=== PATIENT | male | born 1935 | race Caucasian/White ===

== ENCOUNTER 2016-10-23 00:06 | Day surgery (SDC) | payer MEDICARE, OTHER ==
[2016-10-23] VITALS (17 sets, daily range): BP systolic 99–149; BP diastolic 58–88; PULSE 60–68; RESP 13–19; O2SAT 94–98
[~2016-10-23] VITALS: Ht 175.3 cm; Wt 82.0 kg
[~2016-10-23 00:06] MED LIST: ALBU90AE IH; ASCO-294 PO; ASPI-973 PO; ATRV10T PO; CYAN100T PO; DIVA125T2 PO; ECON15CR10 TOP; LEVO50TA6 PO; LISI10TA PO; METO-272 PO; NIAC500T21 PO; NITR0.4T6 SL; OMEG300C3 PO; OXYC1TAB24 PO; TAMS0.4C98 PO; TIOT18CA3 IH
[2016-10-23] MEDS ORDERED: 0.9% Sodium Chloride 1,000 ML IV ONE (06:30)
--- NOTE | 2016-10-23 06:30 | NUR ---
ADMISSION NOTE MALE PT ADMITTED FOR HEART CATH. DISCUSSED PLAN OF CARE WITH PT AND . SEE ADMIT AND FLOW SHEET
[2016-10-23] MEDS ORDERED: Heparin 10,000 Unit/1,000 mL NS Premix IV ONE (07:34)
[2016-10-23] MEDS ORDERED: Heparin 1,000 Units/500 mL NS Premix IV ONE (07:34)
[2016-10-23 07:40] LABS: BASOPHILS % (AUTO) 0.3 % (0-3); EOSINOPHILS % (AUTO) 2.8 % (0-5); MONOCYTES % (AUTO) 9.6 % (4-12); Mean Corpuscular Hemoglobin 30.3 pg (27.0-35.0); NEUTROPHILS % (AUTO) 64.8 % (40-74); Platelet Count 213 bil/L (150-400)
[2016-10-23] MEDS ORDERED: METO25TA6 PO (07:47)
[2016-10-23 07:55] LABS: INR 0.94 ratio
[2016-10-23] MEDS ORDERED: mometasone furoate INH (07:56)
[2016-10-23] MEDS ORDERED: VALP250C2 PO ×2 (07:56)
[2016-10-23] MEDS ORDERED: MELA3TAB46 PO (07:57)
[2016-10-23] MEDS ORDERED: PRAZ1CAP2 PO (08:00)
[2016-10-23] MEDS ORDERED: MULT1CAP33 PO (08:00)
[2016-10-23] MEDS ORDERED: SERT50TA9 PO (08:00)
[2016-10-23] MEDS ORDERED: ZOLPIDEM PO (08:00)
[2016-10-23] MEDS ORDERED: fentaNYL-PF 50 mCg/mL 2 mL Inj ONE (08:19)
[2016-10-23] MEDS ORDERED: Heparin 1,000 Unit/mL 10 mL Inj ONE ×2 (08:40→09:20)
[2016-10-23] MEDS ORDERED: Nitroglycerin 50,000 mcg/250 mL D5W Premix IV ONE (08:48)
--- NOTE | 2016-10-23 12:54 | DI95 ---
[address] [address] INTERVENTIONAL CARDIAC CATHETERIZATION PATIENT: ILNWOOD REYES V : 1935 MR#: [id number] ADMIT: 10/23/2016 JOB ID: [id number] DATE OF SERVICE: 10/23/2016 PATIENT PROFILE: The patient is an 80 years old male with history of prior smoking, hypertension and hyperlipidemia. He underwent coronary artery bypass surgery x3 in April 2009, with SON graft to the LAD, right radial graft to the posterolateral branch of the circumflex and left radial graft of the obtuse marginal branch. The patient developed exertional chest discomfort and dyspnea for the past three months. PROCEDURE: 1. Retrograde left heart catheterization. 2. Selective coronary angiography. 3. Left internal mammary angiography. 4. Radial graft angiography. 5. Ascending aortogram. 6. Balloon angioplasty and stenting to the major obtuse marginal branch. VASCULAR CLOSURE DEVICE: Perclose. COMPLICATIONS: None. METHOD: Retrograde left heart catheterization was performed from the right groin under 1% lidocaine local anesthesia using a 6-Armenian sheath. It was somewhat difficult to engage the left coronary ostium. The femoral sheath was then exchanged to a 6-Armenian 25 cm sheath. Selective coronary angiogram was performed in multiple projections, including cranial and caudal angulations with hand-injected contrast via JL5 and 3DRC catheters. A 4-Armenian IM catheter was used for internal mammary angiogram. A 5-Armenian AR modified catheter was used for radial graft angiogram. A 6-Armenian angulated pigtail catheter was advanced to left ventricle and left ventricular pressure was obtained. This catheter was withdrawn into the ascending aorta, and ascending aortogram was performed in the 40-degree TELUGU view by injecting contrast at a rate of 20 cc/sec for 1.5 seconds. This catheter was withdrawn. Heparin was given in order to maintain ACT above 300. A 6-Armenian JL5 guide was initially used but could not provide enough support. The guide catheter was then changed to a 6-Armenian CLS4 guide. A Runthrough wire was placed inside the obtuse marginal branch. This wire went through the previous stent strut in the mid circumflex artery. Then, 1.2, 1.5, 2.0, 2.5 and 3.0 mm balloons were used to dilate in the mid circumflex artery throgh the stent strut and involved the origin of this obtuse marginal branch. An attempt to advance a 2.75 x 15 Resolute stent to the lesion was unsuccessful due to unable to turn the corner. The 3.0 mm balloon was again used to dilate at the origin of the obtuse marginal branch. It was inflated up to 17 atmospheres. A Resolute Integrity 2.5 x 12 mm stent was then placed inside the mid obtuse marginal branch lesion and deployed at 12 atmospheres for 15 seconds. The stent balloon was pulled back and inflated in the mid circumflex artery up to 20 atmospheres. Final angiogram was obtained. Right femoral angiogram was performed before sheath removal. Hemostasis was achieved by using Perclose device. The patient tolerated the procedure well. He was transferred to the [facility] in good condition. TOTAL CONTRAST USED: 130 cc. FLUOROSCOPY TIME: 12.8 minutes. TOTAL RADIATION DOSE: 600 mGy. RESULTS: 1. Selective coronary angiogram: a. The coronary arteries are heavily calcified. b. The left main coronary artery has minor irregularity with moderate calcification. c. The left anterior descending artery is transapical and has severe eccentric 95% stenosis at its origin with heavy calcification. There is no competitive flow into this artery. The major diagonal branch has minor irregularity. d. The codominant circumflex artery is occluded distal to the takeoff of the major obtuse marginal branch. The major obtuse marginal branch has severe 85% stenosis in the mid portion. e. The codominant right coronary artery has moderate disease of 40% to 50% stenosis in the mid portion with moderate calcification. 2. The left internal mammary artery graft to the left anterior descending artery is nonfunctioning. 3. The right radial graft to the left posterolateral branch of the circumflex artery is an excellent conduit with excellent distal anastomosis and distal runoff. 4. The left radial graft to the obtuse marginal branch is occluded. 5. Aortic pressure is 115/54 mmHg. Left ventricular pressure is 102/0 mmHg. 6. Left ventricular end-diastolic pressure is 7 mmHg. 7. Balloon angioplasty and stenting was performed to the severe mid obtuse marginal branch lesion by deploying one drug-eluting stent (2.5 x 12 mm) to achieve an excellent angiographic result with CHERYL-3 flow distally. CONCLUSION: 1. Severe 95% proximal left anterior descending artery stenosis with nonfunctioning left internal mammary artery graft. 2. Severe 85% stenosis of the mid obtuse marginal branch. The radial graft to this branch is occluded. 3. This lesion was successfully treated with one drug-eluting stent. 4. Occluded distal circumflex artery with patent right radial graft to the left posterolateral branch of the circumflex. 5. Moderate disease of the right coronary artery. 6. Left ventricular end-diastolic pressure is 9 mmHg. MTDD
[2016-10-23] MEDS: 0.9% Sodium Chloride 1,000 ML IV SCH ×2 (13:53→23:35)
--- NOTE | 2016-10-23 14:00 | NUR ---
TRANSFERED TO [facility], REPORT GIVEN
[2016-10-23] MEDS ORDERED: Ondansetron 2 mg/mL 2 mL Inj IVPUSH PRN (14:50)
[2016-10-23] MEDS ORDERED: Atropine 1 mg/10 mL (Code) Syringe IVPUSH PRN (14:50)
[2016-10-23] MEDS ORDERED: Sodium Chloride LOK Flush 10 mL Syringe IVFLUSH PRN (14:50)
[2016-10-23] MEDS ORDERED: 0.9% Sodium Chloride 250 ML BOLUS IV PRN (14:50)
[2016-10-23] MEDS ORDERED: Albuterol 2.5 mg/3 mL Inhalation Solution NEB PRN (14:55)
[2016-10-23] MEDS ORDERED: oxyCODONE-Acetamin 5-325 mg Tablet PO PRN (15:00)
--- NOTE | 2016-10-23 15:58 | NUR ---
Admit from [facility] Pt arrived from [facility] to [facility] on his own bed. Pt A&O X3. BERG. Answers questions appropriately, able to make needs known. R groin site is C/D/I with no drainage or s/s infection. Pt ambulates independently with no issues. Pt voided in the bathroom. NS running at 150mls/hr. IV patent. Pedal pulses weak to palpation. L foot is cooler than the R. Addendum: 10/23/16 at 1844 by AMARIS SOLIMAN RN pedal and tibial pulses audible to doppler
[2016-10-23] MEDS: Fluticasone 250 mCg Inhaler INHALATION SCH (21:29)
[2016-10-24 00:13] VITALS: BP 159/85; PULSE 77; RESP 18; O2SAT 98
[2016-10-24 00:37] VITALS: BP 94/52
[2016-10-24 00:44] VITALS: BP 98/57; PULSE 66
[2016-10-24 04:25] VITALS: BP 105/49; PULSE 60; RESP 16; O2SAT 95
--- NOTE | 2016-10-24 04:39 | NUR ---
Groin Site/BPs Pt's groin site has been non-tender to the touch but has had an area of hardness next to the gauze portion of the dressing. Manual pressure was applied to the hardened site and the site became softer to the touch. There is now slight bruising in the area where manual pressure was applied. Pt does not c/o pain at the groin site. Pt's SBP throughout the shift has been 90s-100s. Pt did have one instance where SBP was in the 150s but when BP was retaken the SBP was in the 90s.
[2016-10-24 04:48] LABS: Mean Corpuscular Volume 92.6 fL (81-100)
[2016-10-24 04:59] VITALS: PULSE 60
[2016-10-24 08:00] VITALS: BP 121/65; PULSE 60; RESP 22; O2SAT 96
[2016-10-24] MEDS: Fluticasone 250 mCg Inhaler INHALATION SCH (08:05)
[2016-10-24] MEDS: 0.9% Sodium Chloride 1,000 ML IV SCH (08:06)
--- NOTE | 2016-10-24 08:14 | PCM.DIMED ---
Discharge Instructions Date of Service Oct 24, 2016 Dates of Hospitalization 10/23/2016 Discharge Diagnosis Discharge Diagnosis CAD, s/p GENE to OM (10/23/2016), s/p CABGx3, HTN, HLD Medication Instructions Additional med instructions Please take all medications as prescribed. Please make sure that you take Clopidogrel (Plavix) every day for at least one year because you had stent placement. I sent the prescription to Pharmacy at [facility] in [place]. Please pick it up today. Diet Discharge Diet: Low fat, Low Sodium, Heart Healthy Activity Discharge Activity: Other (Please see below) Call your provider Call your provider for: Shortness of breath, Bleeding, Chest pain Patient Instructions Patient Instructions No car driving for couple of days; you can have shower starting from today; no bath tub soaking for one week; no heavy lifting, no more than 7-10 lb for one week, otherwise you can be physically active as tolerated. Follow-up plan check BMP in one week You have an appointment with [employer] Dr. Cerda scheduled on 11/03/2016 at 3 pm , please arrive 20 min earlier. Thank you Myles Ramos PA-C Oct 24, 2016 08:14
[2016-10-24] MEDS ORDERED: Ascorbic Acid 500 mg Tablet PO SCH (08:30)
[2016-10-24] MEDS ORDERED: CLOP75TA28 PO (08:36)
--- NOTE | 2016-10-24 08:38 | PCM.DC.CAR ---
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 He underwent coronary artery bypass surgery x3 in April 2009, with SON graft to the LAD, right radial graft to the posterolateral branch of the circumflex and left radial graft of the obtuse marginal branch. The patient developed exertional chest discomfort and dyspnea for the past three months. Hospital Course: On 10/23/2016 the patient had elective coronary angiography which revealed : 1. Severe 95% proximal left anterior descending artery stenosis with nonfunctioning left internal mammary artery graft. 2. Severe 85% stenosis of the mid obtuse marginal branch. The radial graft to this branch is occluded. 3. This lesion was successfully treated with one drug-eluting stent. 4. Occluded distal circumflex artery with patent right radial graft to the left posterolateral branch of the circumflex. 5. Moderate disease of the right coronary artery. 6. Left ventricular end-diastolic pressure is 9 mmHg. The patient tolerated procedure well. He ambulates freely. Denies having any chest discomfort or MONTERO, does not have symptoms of nocturnal pulmonary congestion, denies having palpitations, or dizziness/lightheadedness. His right groin area (access site) is nontender with palpation, no bleeding, no hematoma, and no bruits with auscultation. On telemetry sinus rhythm with periodically atrial and ventricular paced rhythm, HR in 60s. Medications on discharge are below. Physical Exam: General: No active distress EENT: Mucous membranes moist, sclerae anicteric Neck: Supple, no thyromegaly Pulmo: Normal breathing sounds bilaterally, no crackles, no wheezing Cardio: regular rhythm, no murmur appreciated, JVP is not elevated Abdomen: Nontender with palpation Vascular: No carotid bruits, peripheral pulses preserved Neuro: A&Ox3, no gross abnormalities Discharge Medications ([mometasone furoate]) 220 MCG INH BID ([zolpiden tartrate]) 10 MG PO HS Ascorbate Calcium (Vitamin C) 500 Mg Tablet 500 MG PO DAILY Atorvastatin (Lipitor) 10 Mg Tab 10 MG PO DAILY Clopidogrel (Clopidogrel) 75 Mg Tablet 75 MG PO DAILY Cyanocobalamin (Vitamin B-12) (Vitamin B-12) 100 Mcg Tablet 100 MCG PO DAILY Levothyroxine (Levothyroxine) 50 Mcg Tablet 75 MCG PO DAILY Lisinopril (Lisinopril) 10 Mg Tablet 10 MG PO DAILY Metoprolol Tartrate (Metoprolol Tartrate) 25 Mg Tablet 25 MG PO DAILY Multivitamin (Multivitamins) 1 Each Capsule 1 EACH PO DAILY Niacinamide (Niacin) 500 Mg Tablet 500 MG PO TID Prazosin (Prazosin) 1 Mg Capsule 1 MG PO HS Sertraline HCl (Sertraline) 50 Mg Tablet 75 MG PO DAILY Valproic Acid (Valproic Acid) 250 Mg Capsule 250 MG PO QAM Swallowed whole without chewing to avoid local irritation of the mouth and throat. Valproic Acid (Valproic Acid) 250 Mg Capsule 500 MG PO HS Swallowed whole without chewing to avoid local irritation of the mouth and throat. As needed Albuterol Sulfate (Proair Respiclick) 90 Mcg Aer.pow.ba 2 PUFFS IH Q4-6H PRN PRN For Shortness of Breath Nitroglycerin SL (Nitroglycerin SL) 0.4 Mg Tab.subl 0.4 MG SL PRN For Chest Pain oxyCODONE-Acetaminophen 5-325 mg (oxyCODONE-Acetaminophen 5-325 mg) 1 Each Tablet 1 TAB PO Q6H PRN PRN For Pain Miscellaneous Medications Aspirin (Aspirin) 81 Mg Tablet 81 MG PO Melatonin (Melatonin) 3 Mg Tab.rapdis 6 MG PO Additional med instructions Please take all medications as prescribed. Please make sure that you take Clopidogrel (Plavix) every day for at least one year because you had stent placement. I sent the prescription to Pharmacy at [facility] in [place]. Please pick it up today. Followup Plan Follow-up plan check BMP in one week You have an appointment with [facility] Dr. Cerda scheduled on 11/03/2016 at 3 pm , please arrive 20 min earlier. Thank you Discharge Activity: Other (Please see below) Patient Instructions No car driving for couple of days; you can have shower starting from today; no bath tub soaking for one week; no heavy lifting, no more than 7-10 lb for one week, otherwise you can be physically active as tolerated. Myles Ramos PA-C Oct 24, 2016 08:38
== END 2016-10-24 10:09 | disposition home or self-care (01) ==
LOC: SOUO 00:06 → PCC 14:09 → SOUO 10-24 10:09
PROVIDERS: ATTEND Internal Medicine Interventional Cardiology
DX: I25.119 Atherosclerotic heart disease of native coronary artery with unspecified angina pectoris (principal); I25.729 Atherosclerosis of autologous artery coronary artery bypass graft(s) with unspecified angina pectoris; I25.84 Coronary atherosclerosis due to calcified coronary lesion; E78.1 Pure hyperglyceridemia; E78.5 Hyperlipidemia, unspecified; I34.0 Nonrheumatic mitral (valve) insufficiency; Z87.891 Personal history of nicotine dependence; Z95.0 Presence of cardiac pacemaker; I44.2 Atrioventricular block, complete; J44.9 Chronic obstructive pulmonary disease, unspecified; F43.10 Post-traumatic stress disorder, unspecified; I10 Essential (primary) hypertension; E11.9 Type 2 diabetes mellitus without complications; Z95.5 Presence of coronary angioplasty implant and graft; E03.9 Hypothyroidism, unspecified; Z79.82 Long term (current) use of aspirin; G40.409 Other generalized epilepsy and epileptic syndromes, not intractable, without status epilepticus
CPT/HCPCS: 36415; 80048; 85025; 85027; 85610; 93005; 93459; 93567; 94799; 99152; 99153; C1725; C1760; C1769; C1874; C1887; C9600; J1644; J2060; J2250; J3010; J7030; Q9967

== ENCOUNTER 2016-11-24 01:05 | Day surgery (SDC) | payer MEDICARE, OTHER ==
[~2016-11-24] VITALS: Ht 175.3 cm; Wt 77.9 kg
[2016-11-24] VITALS (21 sets, daily range): BP systolic 98–136; BP diastolic 48–82; PULSE 63–83; RESP 13–20; O2SAT 91–96
[~2016-11-24 01:05] MED LIST changes: -DIVA125T2 PO; +DIVA250T2 PO; -METO-272 PO; +METO25TA6 PO; +MULT1CAP33 PO; -NIAC500T21 PO; -OMEG300C3 PO; -OXYC1TAB24 PO; -TAMS0.4C98 PO; -TIOT18CA3 IH
[2016-11-24 09:41] LABS: BASOPHILS % (AUTO) 0.1 % (0-3); Mean Corpuscular Hemoglobin 29.4 pg (27.0-35.0); Mean Corpuscular Volume 94.8 fL (81-100); NEUTROPHILS % (AUTO) 72.2 % (40-74); Platelet Count 285 bil/L (150-400)
[2016-11-24] MEDS ORDERED: Heparin 10,000 Unit/1,000 mL NS Premix IV ONE (09:58)
[2016-11-24] MEDS ORDERED: Heparin 1,000 Unit/mL 10 mL Inj ONE (09:58)
[2016-11-24] MEDS ORDERED: Heparin 1,000 Units/500 mL NS Premix IV ONE (09:58)
[2016-11-24] MEDS ORDERED: Nitroglycerin 50,000 mcg/250 mL D5W Premix IV ONE (09:58)
[2016-11-24] MEDS ORDERED: 0.9% Sodium Chloride 1,000 ML ONE (09:58)
[2016-11-24] MEDS ORDERED: CLOP75TA3 PO (10:28)
--- NOTE | 2016-11-24 10:29 | NUR ---
Admitted for a heart cath today - Planned PCI. Active chest pain since previous stent 3 weeks ago. Sitting in chair - any activity > chest pain. No active chest pain at rest currently.
[2016-11-24] MEDS ORDERED: LORazepam 0.5 mg Tablet PO SCH (10:30)
[2016-11-24] MEDS ORDERED: Sodium Chloride LOK Flush 10 mL Syringe IVFLUSH PRN (10:35)
[2016-11-24] MEDS ORDERED: fentaNYL-PF 50 mCg/mL 2 mL Inj ONE (10:42)
[2016-11-24] MEDS ORDERED: Atropine 1 mg/10 mL (Code) Syringe ONE (10:42)
--- NOTE | 2016-11-24 12:13 | NUR ---
Returned from rn cardiac cath Proximal LAD arthrectomy/ "router" today prior to drug eluting stent. No pain.
--- NOTE | 2016-11-24 13:52 | NUR ---
Right femoral access site hematoma. Manual pressure held 2 different times for assessed firmness. Patient denies pain at hematoma site. Dr Cerda notified - no Ultrasound. Orders for 6 hours of Bed rest instead of 4 hours - place sandbag on puncture site.
--- NOTE | 2016-11-24 14:48 | DI95 ---
[address] [address] INTERVENTIONAL CARDIAC CATHETERIZATION PATIENT: LINWOOD REYES V : 1935 MR#: [id number] ADMIT: 11/24/2016 JOB ID: [id number] DATE OF PROCEDURE: 11/24/2016 PATIENT PROFILE: The patient is an 80-year-old male who underwent coronary artery bypass surgery x3 in April 2009. The patient presented with progressive angina. PROCEDURE: 1. Orbital atherectomy to the proximal left anterior descending artery. 2. Balloon angioplasty and stenting to the proximal left anterior descending. 3. Intravascular ultrasound to the proximal left anterior descending and left main. 4. Vascular closure device--Perclose. COMPLICATIONS: None. METHOD: Vascular access was obtained from the right groin under 1% lidocaine local anesthesia using a 7-[place] Sudanese sheath. A 7-[place]ese CLS 4 guide was advanced to the left coronary ostium. Heparin was given in order to maintain ACT above 300. A Runthrough wire together with a FineCross catheter was used to cross the critical proximal left anterior descending artery lesion and placed inside the left anterior descending artery. The Runthrough wire was then removed and replaced with a ViperWire. A coronary CSI device was then used for orbital atherectomy in the proximal left anterior descending artery. Four passes were performed at low speed and three passes at high speed. The CSI device was then removed. The proximal left anterior descending artery lesion was then pre-dilated with a 2.5 mm balloon and NC 3.0 x 15 mm balloon. A Resolute Kt 2.75 x 18 mm stent was placed inside the proximal left anterior descending artery lesion with the proximal part of the stent placed in the distal left main. The stent was deployed at 14 atmospheres for 15 seconds. An NC 3.0 x 10 mm balloon was used for post stent deployment dilation. It was inflated up to 17 atmospheres for 15 seconds. An [place] IVUS catheter was then performed in the proximal left anterior descending and distal left main. Final angiogram was obtained. Right femoral angiogram was performed. Following sheath removal, hemostasis was achieved by using a Perclose device. The patient tolerated the procedure well. He was transferred to [facility] in good condition. TOTAL CONTRAST USED: 100 cc. FLUORO TIME: 12 minutes. RESULTS: 1. Successful orbital atherectomy, balloon angioplasty, and stent placement to the proximal left anterior descending artery by deploying one drug eluting stent (2.75 x 18 mm) to achieve an excellent angiographic result with CHERYL-3 flow distally. A 3.0 balloon was used for post stent deployment dilation. 2. Intravascular ultrasound demonstrated good stent apposition to the arterial wall in the left anterior descending artery. The left anterior descending artery has 270 degree calcium. Portion of the stent coming into left main. Left main has minor calcification. MTDD
--- NOTE | 2016-11-24 14:51 | NUR ---
classroom technology coach Jose G Wolfe evaluated hematoma Site. Noted that is how the site felt prior to deployment of the closure device. Assessment by Tech, no hematoma. Site is marked, but has never been painful.
--- NOTE | 2016-11-24 15:58 | NUR ---
Transfer report given to Marichuy Acuña RN for room 2006.
[2016-11-24] MEDS ORDERED: Ondansetron 2 mg/mL 2 mL Inj IVPUSH PRN (16:35)
[2016-11-24] MEDS ORDERED: 0.9% Sodium Chloride 250 ML BOLUS IV PRN (16:35)
[2016-11-24] MEDS ORDERED: Atropine 1 mg/10 mL (Code) Syringe IVPUSH PRN (16:35)
[2016-11-24] MEDS ORDERED: Albuterol 2.5 mg/3 mL Inhalation Solution NEB PRN (17:40)
--- NOTE | 2016-11-24 18:40 | NUR ---
Arrival to unit/Groin site Denies chest pain/pressure/discomfort. Tele paced 60s. Bedrest up at 1800, sitting at edge of bed eating dinner. No current reports of SOB dizziness. SPO2 on RA 95%. Per report/patient, has had pneumonia recently (approx 1 month ago). Productive cough describes as creamy white/green. Endorses SOB with ambulation. No reports of n/v/d/c or abdominal pain. Bowel tones normal and active x4. Voiding without complication. Right groin site unchanged since arrival to unit -- still within marked margins, area still firm with bruise, non tender. Addendum: 11/24/16 at 1843 by SHANKAR AGUSTIN RN minimal sanguinous drainage, also unchanged.
--- NOTE | 2016-11-24 19:10 | DRSVH ---
PROCEDURE: X-RAY CHEST, TWO VIEWS ([id number]) INDICATIONS: 80 year-old male with possible pneumonia. TECHNIQUE: 2 views of the chest were acquired. COMPARISON: [facility], CR, XR CHEST 2VW, 02/27/2016, 17:54. [facility], CR, XR CHEST 2VW, 01/29/2016, 11:18. [facility], CR, XR CHEST 1VW (PORTABLE), 08/27/2015, 12:05. FINDINGS: Surgical changes and devices: Left chest wall dual chamber pacemaker is again noted. Patient is statu s post coronary artery bypass grafting. Lungs and pleura: No pleural effusions or pneumothorax. There is new patchy retrocardiac opacity, be tter seen on the lateral projection. Mediastinum: Mediastinal contours are normal. Heart size is normal. There is aortic atherosclerosi s. Bones and chest wall: No suspicious bony abnormalities. Soft tissues appear unremarkable. IMPRESSION: Retrocardiac left lower lobe pneumonia. Dictated by: Ga Lowery M.D. on 11/24/2016 at 19:07 Approved by: Ga Lowery M.D. on 11/24/2016 at 19:09
[2016-11-24] MEDS ORDERED: diphenhydrAMINE 25 mg Capsule PO ONE (23:50)
[2016-11-25 03:10] LABS: Mean Corpuscular Hemoglobin 29.1 pg (27.0-35.0); Mean Corpuscular Volume 94.8 fL (81-100)
[2016-11-25 04:26] VITALS: BP 112/55; PULSE 62; RESP 16; O2SAT 95
--- NOTE | 2016-11-25 05:47 | NUR ---
Insomnia At approx. 2300, pt requested sleep aid, stating "I have PTSD and I don't want to wake up with an episode; I thought I would be able to get under without any help, but I just can't seem to get to sleep. I normally take melatonin at home." On-call log chain worker paged, one time order for Benadryl 25mg PO ordered and administered with pt resting on reassessment. VSS, tele SR 70s IVCD. Pt reports feeling slightly lightheaded on ambulation but steady on feet.
[2016-11-25 07:43] VITALS: BP 110/62; PULSE 61; RESP 16; O2SAT 93
--- NOTE | 2016-11-25 08:12 | PCM.DIMED ---
Discharge Instructions Date of Service Nov 25, 2016 Dates of Hospitalization 11/24/2016 Discharge Diagnosis Discharge Diagnosis CAD, progressive angina, Balloon angioplasty and GENE placement to proximal LAD ( 11/24/2016) Medication Instructions Additional med instructions Please take all medications as prescribed. Please make sure that you take Plavix (Clopidogrel) every day at least one year. It is very important because you had stent placement. I sent refill to [facility] in [facility] Discharge Diet: Low fat, Low Sodium, Heart Healthy Activity Discharge Activity: Other (Please see below) Call your provider Call your provider for: Shortness of breath, Bleeding, Chest pain Patient Instructions Patient Instructions No car driving for couple of days; you can have shower starting today; please do not soak in bath tub for one week; no heavy lifting, no more than 7-10 lb for one week, otherwise please be physically active as tolerated Follow-up plan CBC and BMP check in one week Provider: Marjorie Rivero MD Follow-up in: 3 weeks Myles Ramos PA-C Nov 25, 2016 08:12
[2016-11-25] MEDS ORDERED: Ascorbic Acid 500 mg Tablet PO SCH (08:30)
[2016-11-25] MEDS ORDERED: CLOP75TA3 PO (08:35)
[2016-11-25 10:18] VITALS: PULSE 64
--- NOTE | 2016-11-25 10:52 | NUR ---
Hematoma/Discharge Pt has small hematoma when right groin site palpated, present on NOC shift and unchanged throughout the night per NOC RN, PA made aware when rounding on Pt who assessed site, RN instructed to continue with discharge. Pt discharged to home with family at ~1030 today. Pt instructed to notify MD if he notes an increase in size of the hematoma at home. Pt's IV access D/C'd and intact. Pt given discharge educational materials on CAD and stent/angioplasty booklet. Pt verbalized that the cardiology office had already called and that they would be setting up a f/u appointment with the Pt. Pt verbalized understanding of all discharge instructions. All belongings accompanied Pt at time of discharge.
--- NOTE | 2016-11-25 11:39 | DIS ---
[address] [address] DISCHARGE SUMMARY PATIENT: LINWOOD REYES V : 1935 MR#: [id number] ADMIT: 11/24/2016 JOB ID: [id number] DIS: 11/25/2016 ADMITTING DIAGNOSES: Angina pectoris. DISCHARGE DIAGNOSIS: Angina pectoris. SECONDARY DIAGNOSES: 1. Status post coronary artery bypass surgery x3 on April 23, 2009. 2. Pacemaker implantation for a complete heart block on July 20, 2015. 3. Moderate mitral regurgitation. 4. Chronic obstructive pulmonary disease. 5. History of tobacco abuse. 6. Hypertension. 7. Dyslipidemia. 8. Anemia. PROCEDURE: 1. Orbital atherectomy to the proximal left anterior descending artery. 2. Balloon angioplasty and stenting to the proximal left anterior descending artery. 3. Intravascular ultrasound to the proximal left anterior descending and left main. VASCULAR CLOSURE DEVICE: Perclose. COMPLICATIONS: None. HISTORY: Please see detailed history in the accompanying office note dated November 03, 2016. The patient has progressive angina. He underwent elective interventional procedure to the proximal left main coronary artery on November 24, 2016. His final angiographic result was excellent. The patient was discharged on the following day in good condition. He will followup with me in 4-6 weeks. He was referred to outpatient cardiac rehab. His medications remain the same. KB
== END 2016-11-25 10:30 | disposition home or self-care (01) ==
LOC: SOUO 01:05 → PCC 16:14 → SOUO 11-25 10:30
PROVIDERS: ATTEND Internal Medicine Interventional Cardiology
DX: I25.119 Atherosclerotic heart disease of native coronary artery with unspecified angina pectoris (principal); I34.0 Nonrheumatic mitral (valve) insufficiency; E11.9 Type 2 diabetes mellitus without complications; E78.5 Hyperlipidemia, unspecified; E78.1 Pure hyperglyceridemia; I10 Essential (primary) hypertension; Z95.1 Presence of aortocoronary bypass graft; F43.10 Post-traumatic stress disorder, unspecified; I44.2 Atrioventricular block, complete; Z95.0 Presence of cardiac pacemaker; D64.9 Anemia, unspecified; E03.9 Hypothyroidism, unspecified; J44.9 Chronic obstructive pulmonary disease, unspecified; Z87.891 Personal history of nicotine dependence; Z95.5 Presence of coronary angioplasty implant and graft; Z79.82 Long term (current) use of aspirin; Z87.01 Personal history of pneumonia (recurrent)
CPT/HCPCS: 36415; 71020; 80048; 85025; 85027; 87070; 87205; 92978; 93005; 99152; 99153; C1724; C1725; C1753; C1760; C1769; C1874; C1887; C9602; J0461; J1644; J2060; J2250; J3010; Q9967